=== PATIENT | male | born 1955 | race African-American/Black ===

== ENCOUNTER 2017-09-06 12:37 | Inpatient (IN) | payer MEDICARE, OTHER ==
[~2017-09-06] VITALS: Ht 182.9 cm; Wt 60.8 kg
[2017-09-07 15:30] VITALS: BP 163/101
[2017-09-07] MEDS ORDERED: LISINOPRIL10 MG ORAL (15:43)
[2017-09-07] MEDS ORDERED: AMIODARONE HCL100 MG ORAL (15:43)
[2017-09-07] MEDS: Lisinopril 10mg tab ORAL SCH (19:03)
[2017-09-07 19:32] LABS: BASOPHILS % (AUTO) 1.4 % (0.0-2.0); EOSINOPHILS % (AUTO) 2.9 % (0.0-3.0); HEMATOCRIT 38.5 % (42.0-52.0); HEMOGLOBIN 12.2 G/DL (14.2-18.0); LYMPHOCYTES % (AUTO) 19.2 % (20.0-45.0); MEAN CORPUSCULAR VOLUME 99 FL (80-99); MONOCYTES % (AUTO) 8.6 % (1.0-10.0); PLATELET COUNT 169 K/UL (150-450); RED BLOOD COUNT 3.87 M/UL (4.70-6.10); RED CELL DISTRIBUTION WIDTH 16.2 % (11.6-14.8); WHITE BLOOD COUNT 8.3 K/UL (4.8-10.8)
[2017-09-07 20:00] VITALS: BP 138/92
[2017-09-07 20:03] LABS: ALANINE AMINOTRANSFERASE 11 U/L (12-78); ALBUMIN 3.4 G/DL (3.4-5.0); ALBUMIN/GLOBULIN RATIO 0.7 (1.0-2.7); ALKALINE PHOSPHATASE 209 U/L (46-116); ANION GAP 16 mmol/L (5-15); ASPARTATE AMINO TRANSFERASE 16 U/L (15-37); BILIRUBIN,TOTAL 1.1 MG/DL (0.2-1.0); BLOOD UREA NITROGEN 114 mg/dL (7-18); CALCIUM 8.9 MG/DL (8.5-10.1); CARBON DIOXIDE 23 MMOL/L (21-32); CHLORIDE 98 MMOL/L (98-107); POTASSIUM 5.3 MMOL/L (3.5-5.1); SODIUM 137 MMOL/L (136-145)
[2017-09-07 20:04] LABS: BILIRUBIN,DIRECT 0.6 MG/DL (0.0-0.3)
[2017-09-07] MEDS: Metoprolol Tartrate 50mg tab ORAL SCH (22:19)
[2017-09-08] VITALS: BP 142/100
[2017-09-08] MEDS: LORazepam 1mg tab ORAL PRN (00:56)
[2017-09-08 04:15] VITALS: BP 120/74
[2017-09-08 08:15] VITALS: BP 123/93
[2017-09-08] MEDS: Metoprolol Tartrate 50mg tab ORAL SCH ×2 (09:00→21:46)
[2017-09-08] MEDS: Amiodarone 200mg tab ORAL SCH (09:00)
[2017-09-08] MEDS: Lisinopril 10mg tab ORAL SCH ×2 (09:00→21:45)
--- NOTE | 2017-09-08 09:05 | Nephrology Progress Note ---
Assessment/Plan Problem List: (1) End-stage renal disease (2) CHF (congestive heart failure) (3) Ascites Plan hd 09/08+09/09 paracentesis Subjective Constitutional: Reports: weakness HEENT: Reports: no symptoms Genitourinary: Reports: other - ascites Neurologic/Psychiatric: Reports: no symptoms Objective Objective Last 24 Hour Vital Signs Date Time Temp Pulse Resp B/P (MAP) Pulse Ox O2 Delivery O2 Flow Rate FiO2 09/08/17 08:15 97.1 94 21 123/93 96 09/08/17 06:00 Room Air 09/08/17 04:15 97.6 71 18 120/74 98 Room Air 09/08/17 00:00 97.6 114 18 142/100 94 09/07/17 22:19 98 138/92 09/07/17 20:00 96.8 98 18 138/92 100 09/07/17 19:03 163/101 09/07/17 15:30 96.8 113 18 163/101 96 Room Air Intake and Output 09/07/17 09/08/17 19:00 07:00 Intake Total 240 ml Balance 240 ml Intake Oral 240 ml # Voids 4 Laboratory Tests 09/07/17 19:00: White Blood Count 8.3, Red Blood Count 3.87L, Hemoglobin 12.2L, Hematocrit 38.5L , Mean Corpuscular Volume 99, Mean Corpuscular Hemoglobin 31.5H, Mean Corpuscular Hemoglobin Concent 31.7L, Red Cell Distribution Width 16.2H, Platelet Count 169, Mean Platelet Volume 8.5, Neutrophils (%) (Auto) 68.0, Lymphocytes (%) (Auto) 19.2L, Monocytes (%) (Auto) 8.6, Eosinophils (%) (Auto) 2.9, Basophils (%) (Auto) 1.4, Sodium Level 137, Potassium Level 5.3H, Chloride Level 98, Carbon Dioxide Level 23, Anion Gap 16H, Blood Urea Nitrogen 114H, Creatinine 14.0H, Estimat Glomerular Filtration Rate 4.4, Glucose Level 97, Calcium Level 8.9, Total Bilirubin 1.1H, Direct Bilirubin 0.6H, Aspartate Amino Transf (AST/SGOT) 16, Alanine Aminotransferase (ALT/SGPT) 11L, Alkaline Phosphatase 209H, Total Protein 8.5H, Albumin 3.4, Globulin 5.1, Albumin/ Globulin Ratio 0.7L, Digoxin Level < 0.2L 09/08/17 08:00: Hepatitis A IgM Antibody [Pending], Hepatitis B Surface Antigen [Pending], Hepatitis B Core IgM Antibody [Pending], Hepatitis C Antibody [Pending] Height (Feet): 6 Weight (Pounds): 134 General Appearance: mild distress EENT: PERRL/EOMI Neck: normal alignment Cardiovascular: regularly irregular Respiratory/Chest: decreased breath sounds Abdomen: other - ascites Extremities: moderate edema Neurologic: pin puller II-XII grossly normal JERE ZALDIVAR Sep 08, 2017 09:04
--- NOTE | 2017-09-08 09:43 | Consultation ---
DATE OF CONSULTATION: 09/07/2017 CONSULTING PHYSICIAN: Ron Mota M.D. REFERRING PHYSICIAN: Dillon Lara M.D. and Iker Arteaga M.D. CHIEF COMPLAINT AND REASON FOR CONSULTATION: I am asked to evaluate the patient with end-stage renal disease and CHF. HISTORY OF PRESENT ILLNESS: The patient is well known to me, receives dialysis on a regular basis, but missed his dialysis three days, underwent today, presents with shortness of breath and fluid overload. 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 He has had prior treatment for renal cell carcinoma with cryoablation and right renal cell carcinoma in 2011 without recurrence. PRIOR SURGICAL HISTORY: Dialysis fistula, left arm and cryoablation of renal cell carcinoma. ALLERGIES: Penicillin. HABITS: He was a smoker about 30-pack years. Occasional alcohol. Occasionally cocaine in the past. MEDICATIONS: At home include lisinopril 20 mg daily, amiodarone 200 mg daily, Renagel one tablet t.i.d., B complex daily, folic acid 1 mg daily, metoprolol 50 mg b.i.d., omeprazole 40 mg daily, digoxin 0.125 mg Wednesday, Wednesday, and Wednesday, lorazepam 1 mg at bedtime p.r.n., and MiraLAX p.r.n. SYSTEM REVIEW: HEAD, EYES, EARS, NOSE, AND THROAT: No glaucoma or cataracts. Vision and hearing are good. ENDOCRINE: No diabetes or thyroid disease. He has had some thyroid nodules benign. PULMONARY: History of prior smoking and dyspnea on minimal exertion. No asthma or TB. CARDIAC: See above. He has a dilated cardiomyopathy with moderate mitral and tricuspid regurgitation. NEUROLOGIC: No CVA, syncope, or seizures. MUSCULOSKELETAL: No deforming arthritis. GASTROINTESTINAL: He has had prior hepatitis B, which resolved with negative serologies. Now, he has had no GI bleeding. PHYSICAL EXAMINATION: GENERAL: The patient is alert, chronically ill-appearing man. VITAL SIGNS: Temperature 96.8, pulse 113, respirations 18, and blood pressure 163/101. HEAD, EYES, EARS, NOSE, AND THROAT: Sclerae are nonicteric. Ocular motions intact in all directions. Oral mucosa moist. NECK: No adenopathy. LUNGS: Decreased breath sounds at the bases. Few crackles. HEART: Rhythm is irregularly irregular. There is a 2/6 systolic murmur. ABDOMEN: Shows moderate ascites. I am unable to feel liver or spleen. EXTREMITIES: Show 2+ edema. He has a left upper arm AV fistula, which is a large fistula with a good thrill. NEUROLOGIC: He is alert and oriented. Cranial nerves are intact. IMPRESSION: 1. End-stage renal disease with recently missed dialysis. 2. Congestive heart failure, acute on chronic diastolic and systolic dysfunction. 3. Mitral and tricuspid regurgitation. 4. Cardiac cirrhosis. 5. Atrial flutter and fibrillation. 6. History of prior gastritis. 7. History of prior renal cell carcinoma. PLAN: The patient will have dialysis arranged. Continue his cardiac medications. Watch closely in view of his comorbidities. Ron Mota M.D. DR: COLIN/AURELIA JOB#: [id number] CC:
--- NOTE | 2017-09-08 09:43 | Consultation ---
DATE OF CONSULTATION: 09/07/2017 CARDIOLOGY CONSULTATION CONSULTING PHYSICIAN: Dillon Lara M.D. REQUESTING PHYSICIAN: Iker Arteaga M.D. REASON FOR CONSULTATION: Congestive heart failure in the setting of cardiomyopathy. HISTORY OF PRESENT ILLNESS: This 62-year-old male has a nonischemic dilated cardiomyopathy. His ejection fraction is recently estimated by echocardiogram in my office at approximately 40% to 45%. He has had prior ischemia workups that were negative. His echocardiogram also revealed mild pulmonary hypertension and mild degenerative valve regurgitation. He has been stable on his medical regimen for some time, and he is also on antiarrhythmic therapy with amiodarone for atrial arrhythmias. He does require hemodialysis with ultrafiltration on a regular [id number]-week schedule for volume management, however. Over the past week, the patient has been moving things in and out of his apartment and apparently considering a change in his permanent residence. He was quite busy and got more fatigued than usual due to the increased level of activity. He also missed his dialysis session on Wednesday and again this morning because he came to the emergency room. He has been compliant with medications. He is usually quite compliant, and these breakdowns were unintentional. PAST MEDICAL HISTORY: Hypertension, chronic systolic and diastolic congestive heart failure, end-stage renal disease, hyperuricemia, history of renal cell carcinoma, status post successful embolization several years ago, paroxysmal atrial fibrillation and flutter, nonsustained ventricular tachycardia, and chronic liver disease with history of ascites. MEDICATIONS: Reviewed and reconciled. ALLERGIES: Penicillin. FAMILY HISTORY: Notable for cardiomyopathy and pacemaker in his mother. SOCIAL HISTORY: No current smoking, alcohol, or substance abuse. There is a distant history of substance abuse. REVIEW OF SYSTEMS: No fevers. No chills. No cough. No sputum production. No history of asthma. He has had leg swelling. No prior history of stroke. No change in bowel habits. He has required paracentesis in the past, but with stable hemodialysis and ultrafiltration. His ascites has been controlled. He has not had any recurrence of his renal cell carcinoma for several years and is in remission with a history of prostatic hypertrophy. He produces minimal urine at this time. PHYSICAL EXAMINATION: GENERAL: Appears older than stated age. He is in mild respiratory distress. Unable to lie completely flat. VITAL SIGNS: Blood pressure 163/101, pulse 113, respirations 18, and afebrile. NECK: Jugular venous pressure greater than 10. HEENT: Conjunctivae pink. Sclerae are anicteric. Oropharynx clear. Mucous membranes moist. LUNGS: With diminished breath sounds and rales bilaterally Cor: Reg S1S2. 1/6 systolic apical murmur Abdomen: moderate ascites. Extremities: 1+ dep BLE edema Neuro: no asterixis. IMPRESSION: Acute on chronic systolic and diastolic CHF CLD with ascites Metabolic encephalopathy ESRD Hx renal cell CA - in remission Hypertensive Heart Disease with hx of malignant hypertension. PLAN: HD/UF Titrate antiHTN regimen Paracentesis Dillon Lara M.D. DR: TUSHAR JOB#: [id number] CC: PREETI
[2017-09-08] MEDS: Nephrovite tab (Rena-Vite) ORAL SCH (09:54)
[2017-09-08 11:56] VITALS: BP 109/71
[2017-09-08 16:00] VITALS: BP 115/73
--- NOTE | 2017-09-08 17:31 | Diagnostic Imaging Report ---
Indication: Elevated LFTs Technique: The plantar grayscale and color Doppler imaging of the abdomen. Comparison: Correlation made to renal ultrasound 05/28/2011 Findings: There is moderate abdominal ascites and bilateral pleural effusions. Pancreatic is slightly heterogeneous in echogenicity. The body and tail are not well seen. The right lobe of the liver measures 19 cm in length. It demonstrates a coarsened echotexture. No focal hepatic mass lesion is appreciated sonographically. Some images suggesting hepatic nodular contour however this is not confirmed with high frequency transducer image the gallbladder wall is thickened to 10 mm. there is no intrahepatic or extrahepatic biliary ductal dilatation. The common bile duct measures 3 mm in diameter. The right kidney is shrunken and echogenic. The previously described possibly solid mass in the interpolar region of the right kidney measures approximately 17 x 15 mm. There is suggestion of enhanced through transmission however this is not definite. It appears similar in size compared to the prior exam. The left kidney demonstrates increased parenchymal echogenicity. It measures 8.9 cm in length. Multiple well-circumscribed lesions are seen compatible with simple cysts. The spleen measures 5.6 cm in length. Imaged portions of the abdominal aorta are normal in caliber. Impression: 1. Moderate ascites and bilateral pleural effusions. 2. Heterogeneous hepatic echotexture. No definite focal hepatic mass lesion appreciated. Some images suggest a subtle nodular contour to the liver however this is not definite. 3. March gallbladder wall thickening. This may be seen in the setting of hepatic inflammation, ascites or cholecystitis. Clinical correlation recommended. If there is concern for cholecystitis, recommend HIDA scan for better evaluation. 4. Previously described mass in the interpolar region of the right kidney demonstrates slight interval increase in size since last exam in 2010, from 16 x 15 mm to approximately 15 x 18 mm 5. Slightly prominent pancreatic head with subtle heterogeneous echogenicity. Correlate with pancreatic enzymes to exclude possibility of pancreatic inflammation.
[2017-09-08] MEDS ORDERED: Lisinopril 10mg tab ORAL SCH (18:00)
--- NOTE | 2017-09-08 19:15 | History and Physical Report ---
DATE OF ADMISSION: 09/07/2017 CHIEF COMPLAINT: CHF. HISTORY OF PRESENT ILLNESS: The patient is a pleasant 62-year-old male. 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 The patient had missed the last two sessions of dialysis. He is now admitted for hemodialysis and ultrafiltration. He denies any fever or chills. He has had no chest pain. He has had some worsening shortness of breath and increasing abdominal pain and abdominal distention. PAST MEDICAL HISTORY: As above. PAST SURGICAL HISTORY: As above. CURRENT MEDICATIONS: Reconciled and reviewed. ALLERGIES: Include penicillin. FAMILY HISTORY: Significant for history of dementia. SOCIAL HISTORY: Negative for tobacco, ethanol, or drugs. REVIEW OF SYSTEMS: GENERAL: No fevers or chills. HEENT: No headaches or visual changes. CARDIOPULMONARY: Mild shortness of breath. No chest pain. GASTROINTESTINAL: Positive worsening abdominal distention. GENITOURINARY: No urgency or frequency. MUSCULOSKELETAL: No joint pain or swelling. NEUROLOGIC: No evidence of seizures. PHYSICAL EXAMINATION: VITAL SIGNS: Temperature 97.6, pulse 71, respirations 18, and blood pressure 120/74. GENERAL: The patient is a well-developed male, in no apparent distress. He is thin, awake, and alert. NECK: Supple. There is no jugular venous distention. HEART: Regular rate and rhythm. LUNGS: Clear. ABDOMEN: Soft, distended with a positive fluid wave. EXTREMITIES: No clubbing, cyanosis, or edema. LABORATORY DATA: Labs showed white count of 8.3, hemoglobin 12, hematocrit 38, and platelet count 169. Sodium was 137, potassium 5.3, chloride 98, bicarbonate 23, BUN was 114 with a creatinine of . Total bilirubin was 1.1. ASSESSMENT: This is a pleasant male, admitted with complaints of congestive heart failure secondary to missed dialysis. 1. Congestive heart failure. 2. End-stage renal disease. 3. Ascites. 4. History of conduction system disease. 5. History of paroxysmal atrial fibrillation. PLAN: Hemodialysis with ultrafiltration. Consider abdominal ultrasound if abdominal distention does not improve. Cardiology and Renal consultation have been obtained. The patient is severely deconditioned, will likely need placement in a retirement facility for short-term rehab. Iker Arteaga M.D. DR: NGA JOB#: [id number] CC:
[2017-09-08 20:25] VITALS: BP 126/75
[2017-09-08] MEDS: Digoxin 0.125mg tab ORAL SCH (21:49)
[2017-09-09] MEDS: LORazepam 1mg tab ORAL PRN ×2 (00:07→21:14)
[2017-09-09 00:15] VITALS: BP 115/65
[2017-09-09 04:23] VITALS: BP 120/80
--- NOTE | 2017-09-09 04:30 | Progress Note ---
DATE: 09/08/2017 CARDIOLOGY PROGRESS NOTE SUBJECTIVE: The patient still has abdominal distention and bloating. Less shortness of breath. Hemodialysis with ultrafiltration is planned today. OBJECTIVE: VITAL SIGNS: Blood pressure 126/75, pulse 80, respirations 19, and afebrile. NECK: Jugular venous pressure elevated. ABDOMEN: Moderate ascites. LUNGS: Diminished breath sounds. Few rales. CARDIAC: Regular rhythm and rate. Normal S1 and S2 with a fourth heart sound. EXTREMITIES: A 1+ dependent lower extremity edema. Left AV graft veins with engorgement. IMPRESSION: 1. Acute on chronic systolic and diastolic congestive heart failure. 2. Paroxysmal atrial fibrillation. 3. End-stage renal disease, on hemodialysis. 4. Chronic liver disease with ascites. 5. History of renal cell carcinoma. 6. Status post embolization. 7. Chronic pancreatitis. 8. Functional decline. PLAN: 1. Paracentesis. 2. Hemodialysis with ultrafiltration. 3. Titrate cardiovascular regimen. 4. Physical and occupational therapy assessments. 5. Disposition is to follow. 6. Continue baseline antiarrhythmic therapy with amiodarone. Dillon Lara M.D. DR: ALEX JOB#: [id number] CC:
[2017-09-09 07:51] LABS: BASOPHILS % (AUTO) 1.2 % (0.0-2.0); EOSINOPHILS % (AUTO) 5.9 % (0.0-3.0); HEMATOCRIT 35.5 % (42.0-52.0); HEMOGLOBIN 11.9 G/DL (14.2-18.0); LYMPHOCYTES % (AUTO) 23.9 % (20.0-45.0); MEAN CORPUSCULAR VOLUME 99 FL (80-99); MONOCYTES % (AUTO) 12.2 % (1.0-10.0); NEUTROPHILS % (AUTO) 56.8 % (45.0-75.0); PLATELET COUNT 172 K/UL (150-450); RED BLOOD COUNT 3.57 M/UL (4.70-6.10); RED CELL DISTRIBUTION WIDTH 16.3 % (11.6-14.8); WHITE BLOOD COUNT 6.4 K/UL (4.8-10.8)
[2017-09-09 08:12] VITALS: BP 117/84
[2017-09-09 08:24] LABS: ANION GAP 17 mmol/L (5-15); BLOOD UREA NITROGEN 92 mg/dL (7-18); CALCIUM 8.7 MG/DL (8.5-10.1); CARBON DIOXIDE 21 MMOL/L (21-32); CHLORIDE 96 MMOL/L (98-107); CREATININE 12.4 MG/DL (0.55-1.30); PHOSPHORUS 6.7 MG/DL (2.5-4.9); POTASSIUM 4.5 MMOL/L (3.5-5.1); SODIUM 134 MMOL/L (136-145)
--- NOTE | 2017-09-09 08:48 | General Progress Note ---
Assessment/Plan Problem List: (1) Afib ICD Codes: I48.91 - Unspecified atrial fibrillation SNOMED: 24091938 (2) Ascites ICD Codes: R18.8 - Other ascites SNOMED: 490138706 (3) CHF (congestive heart failure) ICD Codes: I50.9 - Heart failure, unspecified SNOMED: 63482387 (4) End-stage renal disease ICD Codes: N18.6 - End stage renal disease SNOMED: 85929370 Status: stable, progressing Assessment/Plan HD with UF cardiac rx paracentesis pt/ot will need snf Subjective ROS Limited/Unobtainable: No Constitutional: Reports: malaise, weakness HEENT: Reports: no symptoms Cardiovascular: Reports: no symptoms Respiratory: Reports: no symptoms Gastrointestinal/Abdominal: Reports: abdomen distended Genitourinary: Reports: no symptoms Neurologic/Psychiatric: Reports: no symptoms Endocrine: Reports: no symptoms Hematologic/Lymphatic: Reports: anemia Allergies: Coded Allergies: PENICILLINS (Verified Allergy, Unknown, 07/18/10) All Systems: reviewed and negative except above Subjective feels little better today. abd still distended. s/p HD yesterday. no fever or chills. apiarist chest pain . Objective Last 24 Hour Vital Signs Date Time Temp Pulse Resp B/P (MAP) Pulse Ox O2 Delivery O2 Flow Rate FiO2 09/09/17 08:12 97.4 68 21 117/84 96 Room Air 09/09/17 04:23 98.1 60 19 120/80 96 09/09/17 00:15 98.1 75 18 115/65 97 09/09/17 00:15 Room Air 09/08/17 21:49 76 09/08/17 21:46 80 126/75 09/08/17 21:45 126/75 09/08/17 20:25 Room Air 09/08/17 20:25 97.9 80 19 126/75 94 09/08/17 16:00 97.7 74 21 115/73 98 09/08/17 11:56 97.0 70 21 109/71 99 Room Air 09/08/17 10:00 Room Air 09/08/17 09:00 94 123/93 09/08/17 09:00 123/93 Intake and Output 09/08/17 09/09/17 19:00 07:00 Intake Total 840 ml 240 ml Balance 840 ml 240 ml Intake Oral 840 ml 240 ml # Voids 3 1 # Bowel Movements 1 Laboratory Tests 09/08/17 09:50: Prothrombin Time 10.9, Prothromb Time International Ratio 1.0, Activated Partial Thromboplast Time 29 09/09/17 05:50: White Blood Count 6.4, Red Blood Count 3.57L, Hemoglobin 11.9L, Hematocrit 35.5L , Mean Corpuscular Volume 99, Mean Corpuscular Hemoglobin 33.3H, Mean Corpuscular Hemoglobin Concent 33.5, Red Cell Distribution Width 16.3H, Platelet Count 172, Mean Platelet Volume 9.5, Neutrophils (%) (Auto) 56.8, Lymphocytes (%) (Auto) 23.9, Monocytes (%) (Auto) 12.2H, Eosinophils (%) (Auto) 5.9H, Basophils (%) (Auto) 1.2, Sodium Level 134L, Potassium Level 4.5, Chloride Level 96L, Carbon Dioxide Level 21, Anion Gap 17H, Blood Urea Nitrogen 92H, Creatinine 12.4H, Estimat Glomerular Filtration Rate 5.0, Glucose Level 97 , Calcium Level 8.7, Phosphorus Level 6.7H Height (Feet): 6 Weight (Pounds): 134 General Appearance: WD/WN, alert Neck: supple Cardiovascular: regular rhythm Respiratory/Chest: chest wall non-tender, lungs clear, normal breath sounds Abdomen: normal bowel sounds, non tender, soft, no organomegaly Edema: no edema noted Arm (L), no edema noted Arm (R), no edema noted Leg (L), no edema noted Leg (R), no edema noted Pedal (L), no edema noted Pedal (R), no edema noted Generalized Neurologic: forensic document examiner II-XII grossly normal, no motor/sensory deficits, alert, oriented x 3, responsive JOE ROMERO Sep 09, 2017 08:47
[2017-09-09] MEDS: Metoprolol Tartrate 50mg tab ORAL SCH ×2 (09:00→21:14)
[2017-09-09] MEDS: Lisinopril 10mg tab ORAL SCH ×2 (09:00→21:14)
[2017-09-09] MEDS ORDERED: Heparin Sod 1000 units/ml 10ml IV PRN (09:15)
--- NOTE | 2017-09-09 09:23 | Nephrology Progress Note ---
Assessment/Plan Problem List: (1) End-stage renal disease (2) CHF (congestive heart failure) (3) Ascites Plan hd 09/08+09/09 paracentesis Subjective Constitutional: Reports: weakness HEENT: Reports: no symptoms Genitourinary: Reports: no symptoms Neurologic/Psychiatric: Reports: no symptoms Objective Objective Last 24 Hour Vital Signs Date Time Temp Pulse Resp B/P (MAP) Pulse Ox O2 Delivery O2 Flow Rate FiO2 09/09/17 08:12 97.4 68 21 117/84 96 Room Air 09/09/17 04:23 98.1 60 19 120/80 96 09/09/17 00:15 98.1 75 18 115/65 97 09/09/17 00:15 Room Air 09/08/17 21:49 76 09/08/17 21:46 80 126/75 09/08/17 21:45 126/75 09/08/17 20:25 Room Air 09/08/17 20:25 97.9 80 19 126/75 94 09/08/17 16:00 97.7 74 21 115/73 98 09/08/17 11:56 97.0 70 21 109/71 99 Room Air 09/08/17 10:00 Room Air Intake and Output 09/08/17 09/09/17 19:00 07:00 Intake Total 840 ml 240 ml Balance 840 ml 240 ml Intake Oral 840 ml 240 ml # Voids 3 1 # Bowel Movements 1 Laboratory Tests 09/08/17 09:50: Prothrombin Time 10.9, Prothromb Time International Ratio 1.0, Activated Partial Thromboplast Time 29 09/09/17 05:50: White Blood Count 6.4, Red Blood Count 3.57L, Hemoglobin 11.9L, Hematocrit 35.5L , Mean Corpuscular Volume 99, Mean Corpuscular Hemoglobin 33.3H, Mean Corpuscular Hemoglobin Concent 33.5, Red Cell Distribution Width 16.3H, Platelet Count 172, Mean Platelet Volume 9.5, Neutrophils (%) (Auto) 56.8, Lymphocytes (%) (Auto) 23.9, Monocytes (%) (Auto) 12.2H, Eosinophils (%) (Auto) 5.9H, Basophils (%) (Auto) 1.2, Sodium Level 134L, Potassium Level 4.5, Chloride Level 96L, Carbon Dioxide Level 21, Anion Gap 17H, Blood Urea Nitrogen 92H, Creatinine 12.4H, Estimat Glomerular Filtration Rate 5.0, Glucose Level 97 , Calcium Level 8.7, Phosphorus Level 6.7H Height (Feet): 6 Weight (Pounds): 134 General Appearance: no apparent distress, alert EENT: normal ENT inspection Neck: non-tender Cardiovascular: regularly irregular Respiratory/Chest: crackles/rales Abdomen: other - ascites Extremities: moderate edema Neurologic: rn circulating II-XII grossly normal JERE ZALDIVAR Sep 09, 2017 09:22
[2017-09-09] MEDS: Amiodarone 200mg tab ORAL SCH (09:26)
[2017-09-09] MEDS: Nephrovite tab (Rena-Vite) ORAL SCH (09:26)
[2017-09-09 11:51] VITALS: BP 100/66
[2017-09-09 16:00] VITALS: BP 108/62
[2017-09-09 20:00] VITALS: BP 137/80
[2017-09-10] VITALS: BP 106/73
[2017-09-10 04:00] VITALS: BP 102/67
[2017-09-10 08:00] VITALS: BP 107/71
--- NOTE | 2017-09-10 08:50 | Nephrology Progress Note ---
Assessment/Plan Problem List: (1) End-stage renal disease (2) CHF (congestive heart failure) (3) Ascites Plan hd 09/08+09/09 paracentesis, cardiac observe Subjective Constitutional: Reports: weakness HEENT: Reports: no symptoms Genitourinary: Reports: no symptoms Neurologic/Psychiatric: Reports: no symptoms Objective Objective Last 24 Hour Vital Signs Date Time Temp Pulse Resp B/P (MAP) Pulse Ox O2 Delivery O2 Flow Rate FiO2 09/10/17 04:00 98.2 77 18 102/67 95 Room Air 09/10/17 00:00 97.8 77 18 106/73 100 09/09/17 21:14 101 108/62 09/09/17 21:14 108/62 09/09/17 20:00 97.8 80 18 137/80 100 09/09/17 16:00 97.5 101 20 108/62 99 Room Air 09/09/17 15:05 Room Air 09/09/17 11:51 97.7 77 21 100/66 99 Room Air 09/09/17 11:20 Room Air 09/09/17 09:00 68 117/84 09/09/17 09:00 117/84 Intake and Output 09/09/17 09/10/17 19:00 07:00 Intake Total 240 ml Balance 240 ml Intake Oral 240 ml # Bowel Movements 1 Height (Feet): 6 Weight (Pounds): 134 General Appearance: no apparent distress, alert EENT: normal ENT inspection Neck: normal alignment Cardiovascular: regularly irregular Respiratory/Chest: lungs clear Abdomen: non tender, other - ascites Extremities: trace edema Neurologic: credit products officer II-XII grossly normal JERE ZALDIVAR Sep 10, 2017 08:50
[2017-09-10] MEDS: Nephrovite tab (Rena-Vite) ORAL SCH (09:00)
[2017-09-10] MEDS: Amiodarone 200mg tab ORAL SCH (09:00)
[2017-09-10] MEDS: Lisinopril 10mg tab ORAL SCH ×2 (09:00→21:13)
[2017-09-10] MEDS: Metoprolol Tartrate 50mg tab ORAL SCH ×2 (09:00→21:15)
--- NOTE | 2017-09-10 10:34 | General Progress Note ---
Assessment/Plan Problem List: (1) Afib ICD Codes: I48.91 - Unspecified atrial fibrillation SNOMED: 28207821 (2) Ascites ICD Codes: R18.8 - Other ascites SNOMED: 305249577 (3) CHF (congestive heart failure) ICD Codes: I50.9 - Heart failure, unspecified SNOMED: 31712816 (4) End-stage renal disease ICD Codes: N18.6 - End stage renal disease SNOMED: 01866225 Status: stable, progressing Assessment/Plan HD with UF cardiac rx paracentesis today pt/ot will need snf Subjective ROS Limited/Unobtainable: No Constitutional: Reports: malaise, weakness HEENT: Reports: no symptoms Cardiovascular: Reports: no symptoms Respiratory: Reports: no symptoms Gastrointestinal/Abdominal: Reports: abdomen distended Genitourinary: Reports: no symptoms Neurologic/Psychiatric: Reports: no symptoms Endocrine: Reports: no symptoms Hematologic/Lymphatic: Reports: no symptoms Allergies: Coded Allergies: PENICILLINS (Verified Allergy, Unknown, 07/18/10) All Systems: reviewed and negative except above Subjective feels little better today. abd still distended. s/p HD yesterday. no fever or chills. scheduled for paracentesis today . Objective Last 24 Hour Vital Signs Date Time Temp Pulse Resp B/P (MAP) Pulse Ox O2 Delivery O2 Flow Rate FiO2 09/10/17 08:00 98.0 74 18 107/71 95 Room Air 09/10/17 04:00 98.2 77 18 102/67 95 Room Air 09/10/17 00:00 97.8 77 18 106/73 100 09/09/17 21:14 101 108/62 09/09/17 21:14 108/62 09/09/17 20:00 97.8 80 18 137/80 100 09/09/17 16:00 97.5 101 20 108/62 99 Room Air 09/09/17 15:05 Room Air 09/09/17 11:51 97.7 77 21 100/66 99 Room Air 09/09/17 11:20 Room Air Intake and Output 09/09/17 09/10/17 19:00 07:00 Intake Total 240 ml Balance 240 ml Intake Oral 240 ml # Bowel Movements 1 Height (Feet): 6 Weight (Pounds): 134 Objective General Appearance: WD/WN, alert Neck: supple Cardiovascular: regular rhythm Respiratory/Chest: chest wall non-tender, lungs clear, normal breath sounds Abdomen: normal bowel sounds, non tender, soft, no organomegaly Edema: no edema noted Arm (L), no edema noted Arm (R), no edema noted Leg (L), no edema noted Leg (R), no edema noted Pedal (L), no edema noted Pedal (R), no edema noted Generalized Neurologic: real estate broker associate II-XII grossly normal, no motor/sensory deficits, alert, oriented x 3, responsive JOE ROMERO Sep 10, 2017 10:34
[2017-09-10 13:00] VITALS: BP 100/70
--- NOTE | 2017-09-10 13:35 | Diagnostic Imaging Report ---
Indications: Ascites Technique: Ultrasound used to localize optimal puncture site. Sterile prepping and draping of the right lower quadrant including use of sterile ultrasound probe cover and sterile ultrasound gel.. Local anesthesia with 1% lidocaine. Under real-time ultrasound guidance, puncture peritoneal space using paracentesis needle. Stylet removed. Catheter placed to vacuum bottle suction. Total 3.8 liters of fluid aspirated. Patient tolerated procedure well, without immediate complication. Findings: Followup sonography demonstrates complete resolution of peritoneal fluid. Impression: Successful ultrasound-guided paracentesis, yielding 3.8 liters of fluid
[2017-09-10 16:06] VITALS: BP 99/67
[2017-09-10 20:00] VITALS: BP 117/82
[2017-09-10] MEDS: Digoxin 0.125mg tab ORAL SCH (21:12)
--- NOTE | 2017-09-10 23:15 | Progress Note ---
DATE: 09/10/2017 SUBJECTIVE: The patient is status post repeat paracentesis today with almost four liters of fluid was removed. The patient has slight pain in the right quadrant this afternoon. PHYSICAL EXAMINATION: VITAL SIGNS: Blood pressure 99/67, pulse 86, respiratory rate 20, afebrile. LUNGS: Clear. CARDIAC: Regular. Normal S1 and S2. A 1/6 systolic apical murmur. ABDOMEN: Soft and nontender with no ascites. EXTREMITIES: With trace edema. IMPRESSION: 1. End-stage liver disease. 2. End-stage renal disease. 3. Ascites status post paracentesis. 4. Acute on chronic systolic and diastolic congestive heart failure. 5. Paroxysmal atrial fibrillation and flutter. 6. History of malignant hypertension now with low range blood pressure post fluid removal. 7. Functional decline. PLAN: 1. Fluid challenge for further drop in blood pressure. 2. Symptom guarded pain control. 3. Hold parameters for antihypertensives. 4. Re-evaluate over the next 12 to 24 hours with regard to medication regimen and discharge plan. Dillon Lara M.D. DR: Barry JOB#: [id number] CC:
[2017-09-10] MEDS: Norco 5mg/325mg tab ORAL PRN (23:28)
[2017-09-10] MEDS: LORazepam 1mg tab ORAL PRN (23:32)
[2017-09-11] VITALS: BP 112/67
[2017-09-11 04:00] VITALS: BP 101/70
[2017-09-11 08:00] VITALS: BP 108/73
[2017-09-11] MEDS ORDERED: METOPROLOL TART50 MG ORAL (08:14)
[2017-09-11] MEDS: Metoprolol Tartrate 50mg tab ORAL SCH (09:00)
[2017-09-11] MEDS: Amiodarone 200mg tab ORAL SCH (09:00)
[2017-09-11] MEDS ORDERED: Heparin Sod 1000 units/ml 10ml IV PRN (09:00)
[2017-09-11] MEDS: Lisinopril 10mg tab ORAL SCH (09:00)
[2017-09-11] MEDS: Nephrovite tab (Rena-Vite) ORAL SCH (09:15)
[2017-09-11 12:00] VITALS: BP 106/67
--- NOTE | 2017-09-11 12:24 | Nephrology Progress Note ---
Assessment/Plan Problem List: (1) End-stage renal disease (2) CHF (congestive heart failure) (3) Ascites Plan hd 09/08+09/09 paracentesis, cardiac observe, nausea on protonix, hd 09/11 Subjective Constitutional: Reports: weakness HEENT: Reports: no symptoms Neurologic/Psychiatric: Reports: no symptoms Subjective nausea Objective Objective Last 24 Hour Vital Signs Date Time Temp Pulse Resp B/P (MAP) Pulse Ox O2 Delivery O2 Flow Rate FiO2 09/11/17 09:00 73 108/73 09/11/17 09:00 108/73 09/11/17 08:00 97.7 73 19 108/73 100 09/11/17 04:00 97.9 75 20 101/70 98 09/11/17 00:00 98.2 77 20 112/67 96 09/10/17 21:15 81 117/82 09/10/17 21:13 124/73 09/10/17 21:12 81 09/10/17 20:00 98.6 89 20 117/82 97 09/10/17 16:06 98.6 86 20 99/67 94 Room Air 09/10/17 13:00 98.8 72 18 100/70 94 Room Air Intake and Output 09/10/17 09/11/17 19:00 07:00 Intake Total 240 ml 100 ml Balance 240 ml 100 ml Intake Oral 240 ml 100 ml # Voids 2 Height (Feet): 6 Weight (Pounds): 134 General Appearance: no apparent distress, alert EENT: normal ENT inspection Neck: normal alignment Cardiovascular: regularly irregular Respiratory/Chest: lungs clear Abdomen: soft Extremities: trace edema Neurologic: crust sorter II-XII grossly normal JERE ZALDIVAR Sep 11, 2017 12:24
[2017-09-11] MEDS: Norco 5mg/325mg tab ORAL PRN (15:06)
[2017-09-11 16:00] VITALS: BP 117/58
[2017-09-11 18:19] VITALS: BP 105/67
[2017-09-11] MEDS: LORazepam 1mg tab ORAL PRN (18:20)
--- NOTE | 2017-09-11 23:45 | Progress Note ---
DATE: 09/11/2017 CARDIOLOGY PROGRESS NOTE SUBJECTIVE: The patient had weakness and nausea. He is on hemodialysis and ultrafiltration. No chest pain. He is status post paracentesis. OBJECTIVE: VITAL SIGNS: Blood pressure of 117/58, pulse 67, and respirations 18. LUNGS: Clear. CARDIAC: Regular. ABDOMEN: Soft, slightly distended. No edema. IMPRESSION: 1. Acute on chronic systolic and diastolic congestive heart failure, resolved. 2. End-stage renal disease, on hemodialysis, stable. 3. Chronic liver disease with ascites, improved, post paracentesis. 4. History of renal cell carcinoma, in remission. 5. Functional decline. 6. Metabolic encephalopathy, resolved. PLAN OF CARE: 1. Rehabilitation. 2. Continue hemodialysis with ultrafiltration for volume management. 3. Titrate cardiovascular regimen for long-term management of heart failure. Dillon Lara M.D. DR: EMANUEL JOB#: [id number] CC:
--- NOTE | 2017-09-12 03:15 | Discharge Summary ---
DATE OF ADMISSION: 09/07/2017 DATE OF DISCHARGE: 09/11/2017 ADMISSION DIAGNOSES: 1. Congestive heart failure exacerbation. 2. Ascites. 3. Hypertension. 4. End-stage renal disease. DISCHARGE DIAGNOSES: 1. Congestive heart failure exacerbation. 2. Ascites. 3. Hypertension. 4. End-stage renal disease. HISTORY OF PRESENT ILLNESS: The patient is a pleasant male, who is admitted with complaints of volume overload. He had skipped dialysis for several days. He presented with complaints of shortness of breath, ascites, and edema. He was admitted. He underwent serial dialysis. He had paracentesis, which he tolerated well. On discharge, the patient was weak. He requested a short-term senior care facility for rehabilitation. DISCHARGE MEDICATIONS: Please see discharge medication list for discharge medications. DIET: Renal diet. ACTIVITY: Ad-arthur. FOLLOWUP: The patient will follow up in one to two days at the senior care facility. Iker Arteaga M.D. DR: Shiva JOB#: [id number] CC:
== END 2017-09-11 19:38 | DRG 291 ==
LOC: 4E 09-07 14:56
PROC: 0W9G3ZZ Drainage of Peritoneal Cavity, Percutaneous Approach (ICD-10-PCS; principal; 2017-09-08)
PROC: 5A1D70Z Performance of Urinary Filtration, Intermittent, Less than 6 Hours Per Day (ICD-10-PCS; principal; 2017-09-08)
DX: I13.2 Hypertensive heart and chronic kidney disease with heart failure and with stage 5 chronic kidney disease, or end stage renal disease (principal); N18.6 End stage renal disease; G93.41 Metabolic encephalopathy; R18.8 Other ascites; I27.20 Pulmonary hypertension, unspecified; I42.0 Dilated cardiomyopathy; I48.92 Unspecified atrial flutter; I50.43 Acute on chronic combined systolic (congestive) and diastolic (congestive) heart failure; Z91.15 Patient's noncompliance with renal dialysis; Z99.2 Dependence on renal dialysis; Z88.0 Allergy status to penicillin; Z85.53 Personal history of malignant neoplasm of renal pelvis; I48.0 Paroxysmal atrial fibrillation; Z87.891 Personal history of nicotine dependence; I34.0 Nonrheumatic mitral (valve) insufficiency; I36.1 Nonrheumatic tricuspid (valve) insufficiency; K76.1 Chronic passive congestion of liver
CPT/HCPCS: 36415; 76700; 76942; 80048; 80053; 80162; 82248; 84100; 85025; 85610; 85730; 86705; 86709; 86803; 87070; 87081; 87205; 87340; 88104; 89051